=== PATIENT | male | born 1970 | race Hispanic/Latino ===

== ENCOUNTER 2023-06-07 16:10 | Emergency (ER) | payer MEDICAID ==
[~2023-06-07] VITALS: Ht 182.9 cm; Wt 90.7 kg
[2023-06-07] MEDS ORDERED: TETANUS/DIPHTHERIA TOXOID [ADULT] 0.5 ML VIAL IM ONE (22:30)
[2023-06-07] MEDS ORDERED: CEPH500C2 PO (22:42)
[2023-06-07 23:28] VITALS: BP 127/74; PULSE 78; RESP 18; O2SAT 99
== END 2023-06-07 23:35 | disposition home or self-care (01) ==
LOC: EDH 16:10
DX: S61.215A Laceration without foreign body of left ring finger without damage to nail, initial encounter (principal); Z59.7 Insufficient social insurance and welfare support; X58.XXXA Exposure to other specified factors, initial encounter; Y93.89 Activity, other specified; Y92.89 Other specified places as the place of occurrence of the external cause; Y99.8 Other external cause status
CPT/HCPCS: 12002; 73140; 90471; 90714